=== PATIENT | female | born 1975 | race Caucasian/White ===

== ENCOUNTER → 2024-10-13 | Outpatient (CLI) | payer OTHER, SELFPAY ==
[2024-10-13 15:09] LABS: Hematocrit 33.1 % (37-47); Hemoglobin 10.6 g/dL (12.0-15.0); Immature Granulocytes Count 0.010 X10^3/uL (0.0-0.0); Mean Corp Hgb Conc 32.0 g/dL (32-36); Mean Corpuscular Volume 95.7 fL (81-99); Mean Platelet Vol. 8.6 fl (6.2-12.0); NRBC Flagged by Analyzer 0 % (0-5); Platelet Count 290 K/mm3 (150-450); RBC Distribution Width CV 14.2 % (11.6-14.6); RBC Distribution Width SD 50.2 fl (35.1-43.9); Red Blood Count 3.46 M/mm3 (4.2-5.4); White Blood Count 4.7 K/mm3 (4.4-11.0)
[2024-10-13 16:49] LABS: FOLATES,SERUM (FOLIC ACID) 8.33 ng/mL (4.60-34.80)
[2024-10-13 16:51] LABS: AST(SGOT) 19 U/L (<=31); Alanine Aminotransfer ALT/SGPT 10 U/L (<=34); Albumin, Serum 4.5 g/dL (3.5-5.0); Alkaline Phosphatase 68 U/L (35-104); Anion Gap 13 (5-15); BUN 25 mg/dL (4-19); BUN/Creat Ratio 25.4 RATIO (10-20); Calcium,Total 8.7 mg/dL (7.6-11.0); Carbon Dioxide 28.5 mmol/L (21.0-32.0); Chloride 103 mmol/L (98-108); Globulin 2.6 g/dL (2.2-4.2); Glucose 101 mg/dL (70-99); Iron 31 ug/dL (50-170); Iron Binding Capacity,Unsat 177 ug/dL (228-428); Potassium 4.0 mmol/L (3.3-5.1)
[2024-10-13 16:53] LABS: Vitamin B12 602 pg/mL (180-914); Vitamin D,25 Hydroxy 47.2 ng/mL (30-100)
[2024-10-13 16:54] LABS: Iron Binding Capacity,Total 208 ug/dL (250-450)
[2024-10-18 08:09] LABS: Transferrin 179 mg/dL (192-364); Zinc, Plasma or Serum 124 ug/dL (44-115)
== END | disposition home or self-care (01) ==
LOC: LAB 14:51
PROVIDERS: PCP Nurse Practitioner Family; Referring Provider Nurse Practitioner Family; Visit Provider Nurse Practitioner Family
DX: L65.9 Nonscarring hair loss, unspecified (principal); R53.83 Other fatigue; E03.9 Hypothyroidism, unspecified; Z13.1 Encounter for screening for diabetes mellitus
CPT/HCPCS: 36415; 80053; 82306; 82607; 82746; 83036; 83540; 83550; 84439; 84443; 84466; 84630; 85025